=== PATIENT | female | born 1990 ===

== ENCOUNTER 2018-05-25 20:32 | Outpatient (CLI) | payer OTHER | END 2018-05-25 22:20 | disposition home or self-care (01) | LOC: M LDO 20:32 | DX: Z34.83 Encounter for supervision of other normal pregnancy, third trimester (principal); Z3A.40 40 weeks gestation of pregnancy | CPT/HCPCS: 59025 ==

== ENCOUNTER 2018-05-29 11:28 | Inpatient (IN) | payer OTHER ==
[2018-05-29] MEDS: LR 1,000 ML IV ×2 (14:46→22:45)
[2018-05-29] MEDS: OXYTOCIN DRIP 30 UNITS in APPROPRIATE DILUENT 1 EA IV (14:47)
[2018-05-29 15:09] LABS: HEMATOCRIT 33.7 % (36.0-47.0); HEMOGLOBIN 10.8 g/dl (12.0-15.5); MEAN CORPUSCULAR HEMOGLOBIN 28.4 pg (27.0-33.0); MEAN CORPUSCULAR VOLUME 88.7 fl (80.0-96.0); PLATELET COUNT, AUTOMATED 171 10^3/uL (150-450); RED CELL DISTRIBUTION WIDTH 14.1 % (11.5-14.5); WHITE BLOOD COUNT 8.2 10^3/uL (4.0-10.0)
[2018-05-29] MEDS: LACTATED RINGER'S 1000 ML IV (20:25)
[2018-05-29] MEDS ORDERED: BICITRA 30ML SOLN UDC As Ordered (20:26)
[2018-05-29] MEDS ORDERED: ceFAZolin 2 GM/D5W 50 ML IV BAG (J0690 PER 500MG) As Ordered (20:26)
[2018-05-29] MEDS ORDERED: OXYTOCIN INJ 10 UNITS/ML VIAL (J2590) As Ordered ×3 (20:29→21:55)
[2018-05-29] MEDS ORDERED: dexameTHASONE 4 MG/ML 1ML VIAL (J1100) As Ordered (20:29)
[2018-05-29] MEDS ORDERED: KETOROLAC 60 MG/2 ML VIAL (J1885) As Ordered (20:29)
[2018-05-29] MEDS ORDERED: ONDANSETRON 4MG/2ML VIAL (J2405) As Ordered (20:29)
[2018-05-29] MEDS: AZITHROMYCIN INJ 500 MG, VIAL MATE ADAPTER 1 EACH in D5W 250 ML IV (20:30)
[2018-05-29] MEDS: BUPIVACAINE HCL 0.25% 10 ML VIAL SC (20:30)
[2018-05-29] MEDS ORDERED: ACETAMINOPHEN 650 MG SUPP PR (20:30)
[2018-05-29] MEDS: BICITRA 30ML SOLN UDC PO (20:30)
[2018-05-29] MEDS ORDERED: MORPHINE PRES-FREE INJ 10 MG/10 ML VIAL (J2274) As Ordered (20:31)
[2018-05-29] MEDS ORDERED: fentaNYL 100 MCG/2 ML INJECTION (J3010) As Ordered (20:31)
[2018-05-29] MEDS ORDERED: METOCLOPRAMIDE INJ 10MG/2ML VIAL (J2765) IV (21:04)
[2018-05-29] MEDS ORDERED: NALBUPHINE HCL 10 MG/ML AMP (J2300) IV (21:04)
[2018-05-29] MEDS ORDERED: NALOXONE INJ 0.4 MG/1 ML VIAL (J2310) IV ×2 (21:04)
[2018-05-29] MEDS ORDERED: ONDANSETRON 4MG/2ML VIAL (J2405) IV ×2 (21:04→22:45)
[2018-05-29] MEDS ORDERED: ePHEDrine SULFATE 25 MG/5 ML(5MG/ML) SYRINGE As Ordered (21:17)
[2018-05-29 22:07] LABS: CORD GAS ABE A -7.7; CORD GAS ABE V -7.9; CORD GAS HCO3 A 22.9 MEQ/L; CORD GAS HCO3 V 22.3 MEQ/L; CORD GAS O2 SAT A 24.2 %; CORD GAS PCO2 A 70.1 mmHg; CORD GAS PH A 7.132 UNITS; CORD GAS PH V 7.146 UNITS; CORD GAS PO2 A 15.7 mmHg; CORD GAS PO2 V 19.2 mmHg; CORD GAS SBC A 16.7 MEQ/L; CORD GAS SBC V 16.7 MEQ/L; CORD GAS TCO2 A 25.1 MEQ/L; CORD GAS TCO2 V 24.3 MEQ/L
[2018-05-29] MEDS ORDERED: ANUSOL HC CREAM 30GM TOP (22:45)
[2018-05-29] MEDS ORDERED: fentaNYL 100 MCG/2 ML INJECTION (J3010) IV (22:45)
[2018-05-29] MEDS ORDERED: MEPERIDINE INJ 25 MG/ML VIAL (J2175) IV (22:45)
[2018-05-29] MEDS ORDERED: MORPHINE 10 MG/ML 1ML VIAL (J2270) IV (22:45)
[2018-05-29] MEDS ORDERED: MEASLES,MUMPS,RUBELLA VACCINE INJ (MMR-II) (90707) SC (22:45)
[2018-05-29] MEDS ORDERED: MOM 30ML SUSPENSION UDC PO (22:45)
[2018-05-29] MEDS ORDERED: RHOGAM 300 MCG (1500 IU) INJ (J2790) IM (22:45)
[2018-05-29] MEDS ORDERED: NALBUPHINE HCL 10 MG/ML AMP (J2300) As Ordered (23:29)
[2018-05-29] MEDS: NALBUPHINE HCL 10 MG/ML AMP (J2300) IV (23:35)
[2018-05-30] MEDS: LR 1,000 ML IV ×4 (00:53→21:00)
[2018-05-30] MEDS: KETOROLAC 30 MG/ML VIAL (J1885) IV ×3 (04:13→16:04)
[2018-05-30 07:04] LABS: MEAN CORPUSCULAR HEMOGLOBIN 29.6 pg (27.0-33.0); MEAN CORPUSCULAR HGB CONC 32.6 g/dl (32.0-36.5); MEAN CORPUSCULAR VOLUME 90.9 fl (80.0-96.0); PLATELET COUNT, AUTOMATED 146 10^3/uL (150-450); RED BLOOD COUNT 2.97 10^6/uL (4.00-5.40); RED CELL DISTRIBUTION WIDTH 14.1 % (11.5-14.5); WHITE BLOOD COUNT 12.3 10^3/uL (4.0-10.0)
[2018-05-30 07:12] LABS: HEMOGLOBIN 8.8 g/dl (12.0-15.5)
[2018-05-30] MEDS: PRENATAL VITAMINS CHEWABLE TABLET PO (10:02)
[2018-05-30] MEDS: PERCOCET 5MG/325MG TAB PO ×2 (13:27→21:09)
[2018-05-30] MEDS: DOCUSATE SODIUM 100 MG CAP PO (21:09)
[2018-05-31] MEDS: IBUPROFEN 800 MG TAB PO ×2 (00:43→08:05)
[2018-05-31] MEDS: PERCOCET 5MG/325MG TAB PO ×2 (02:53→08:47)
[2018-05-31] MEDS: LR 1,000 ML IV ×2 (05:00→13:00)
[2018-05-31] MEDS: PRENATAL VITAMINS CHEWABLE TABLET PO (08:05)
== END 2018-05-31 14:58 | disposition home or self-care (01) | DRG 765 ==
LOC: M LDI 11:28 → M OBS 05-30 00:15
PROC: 10D00Z1 Extraction of Products of Conception, Low, Open Approach (ICD-10-PCS; principal; 2018-05-29 09:29)
PROC: 3E033VJ Introduction of Other Hormone into Peripheral Vein, Percutaneous Approach (ICD-10-PCS; 2018-05-29 09:29)
PROC: 10907ZC Drainage of Amniotic Fluid, Therapeutic from Products of Conception, Via Natural or Artificial Opening (ICD-10-PCS; 2018-05-29 09:29)
DX: O48.0 Post-term pregnancy (principal); O41.03X0 Oligohydramnios, third trimester, not applicable or unspecified; Z37.0 Single live birth; Z3A.40 40 weeks gestation of pregnancy; O34.211 Maternal care for low transverse scar from previous cesarean delivery; O66.41 Failed attempted vaginal birth after previous cesarean delivery; O32.4XX0 Maternal care for high head at term, not applicable or unspecified; O69.81X0 Labor and delivery complicated by cord around neck, without compression, not applicable or unspecified; L90.5 Scar conditions and fibrosis of skin; O99.72 Diseases of the skin and subcutaneous tissue complicating childbirth